=== PATIENT | female | born 1960 | race African-American/Black ===

== ENCOUNTER 2023-02-18 04:41 | Day surgery (SDC) | payer BC ==
[2023-02-17 08:32] VITALS: BMI 43.2
[2023-02-18 10:22] VITALS: TEMP 98.2
[2023-02-18 11:18] VITALS: BP 118/79; PULSE 62; RESP 15
== END 2023-02-18 11:05 | disposition home or self-care (01) ==
LOC: JASU-ENDO 04:41
PROVIDERS: ATTEND Internal Medicine Gastroenterology
PROC: 0DB68ZX Excision of Stomach, Via Natural or Artificial Opening Endoscopic, Diagnostic (ICD-10-PCS; principal; 2023-02-18 09:30)
DX: K29.50 Unspecified chronic gastritis without bleeding (principal); I10 Essential (primary) hypertension; E11.9 Type 2 diabetes mellitus without complications; Z79.84 Long term (current) use of oral hypoglycemic drugs
CPT/HCPCS: 82962; 88305-TC; 88342-TC

== ENCOUNTER 2024-08-24 07:32 | Day surgery (SDC) | payer OTHER, BC ==
[2024-08-17 09:10] VITALS: BMI 41.1
[2024-08-24 08:54] VITALS: TEMP 97.9
[2024-08-24 10:11] VITALS: BP 137/80; PULSE 55; RESP 18
== END 2024-08-24 10:00 | disposition home or self-care (01) ==
LOC: JASU-ENDO 07:32
PROVIDERS: ATTEND Internal Medicine Gastroenterology
PROC: 0DBN8ZX Excision of Sigmoid Colon, Via Natural or Artificial Opening Endoscopic, Diagnostic (ICD-10-PCS; principal; 2024-08-24 07:30)
DX: K63.5 Polyp of colon (principal); K57.30 Diverticulosis of large intestine without perforation or abscess without bleeding
CPT/HCPCS: 82962; 88305-TC